=== PATIENT | male | born 1940 | race Caucasian/White ===

== ENCOUNTER 2019-08-03 08:17 | Outpatient (CLI) | payer MEDICARE, SELFPAY ==
[2019-08-03 08:36] LABS: Creatinine Urine 81.32 mg/dL (40-278)
[2019-08-03 08:54] LABS: Prothrombin Time 39.7 Seconds (9.64-11.0)
[2019-08-03 10:01] LABS: Albumin Level 3.9 g/dL (3.4-5.0); Anion Gap 13.9 mmol/L (7-16); Blood Urea Nitrogen 30 mg/dL (7-18); Calcium 8.5 mg/dL (8.5-10.1); Carbon Dioxide 28 mmol/L (21-32); Chloride 104 mmol/L (98-108); Estimated Glomerular Filt Rate 26; Glucose 202 mg/dL (70-99); Osmolality Calculated 304 mOsm/kg (285-295); Phosphorus 3.5 mg/dL (2.6-4.7); Potassium 4.9 mmol/L (3.5-5.1); Sodium 141 mmol/L (136-145)
== END 2019-08-03 08:18 | disposition home or self-care (01) ==
PROVIDERS: PCP Family Medicine; Visit Provider Internal Medicine Nephrology
DX: Z79.01 Long term (current) use of anticoagulants (principal); N18.4 Chronic kidney disease, stage 4 (severe); E11.29 Type 2 diabetes mellitus with other diabetic kidney complication; I12.9 Hypertensive chronic kidney disease with stage 1 through stage 4 chronic kidney disease, or unspecified chronic kidney disease; R80.8 Other proteinuria
CPT/HCPCS: 36415; 80069; 82570; 83036; 84156; 85610

== ENCOUNTER 2019-10-06 07:39 | Outpatient (CLI) | payer MEDICARE, SELFPAY ==
[2019-10-06 08:02] LABS: INR 1.4; Prothrombin Time 14.4 Seconds (9.64-11.0)
== END 2019-10-06 07:40 | disposition home or self-care (01) ==
LOC: CHSLAB 07:41
PROVIDERS: PCP Family Medicine; Visit Provider Family Medicine
DX: I48.91 Unspecified atrial fibrillation (principal)
CPT/HCPCS: 36415; 85610

== ENCOUNTER 2019-10-25 12:57 | Outpatient (CLI) | payer MEDICARE, SELFPAY ==
--- NOTE | ~2019-10-25 | US_ITS ---
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 COMPARISON: None. FINDINGS: Right and left brachial artery pressures of 155 mm Hg and 132 mm Hg, respectively, are concordant (no rmal difference <= 30 mmHg). The right ankle-brachial index (JENNIFER) is at least 0.99 (normal >= 0.9-1.0) based upon pressures in the right dorsalis pedis artery with the right posterior tibial artery unable to be occluded. There are brisk systolic upstrokes at both the right posterior tibial and dorsalis pedis arteries. The left JENNIFER is at least 0.87 based upon pressure measurements in the left dorsalis pedis artery with the left posterior tibial artery unable to be occluded allowing for the possibility of a normal left JENNIFER. Risk systolic upstrokes in both the left posterior tibial and dorsalis pedis arteries. IMPRESSION: 1. No significant arterial occlusive disease to the right lower limb with possible (no greater than m ild) arterial occlusive disease in the left lower limb. Reviewed, dictated and finalized at location A. IMPRESSION: 1. No significant arterial occlusive disease to the right lower limb with possi ble (no greater than mild) arterial occlusive disease in the left lower limb.
== END 2019-10-25 12:58 | disposition home or self-care (01) ==
LOC: CHSIMG 12:59
PROVIDERS: PCP Family Medicine; Visit Provider Family Medicine
DX: L97.919 Non-pressure chronic ulcer of unspecified part of right lower leg with unspecified severity (principal); I73.9 Peripheral vascular disease, unspecified
CPT/HCPCS: 93922

== ENCOUNTER 2019-11-02 09:04 | Outpatient (CLI) | payer MEDICARE, SELFPAY ==
[2019-11-02 09:28] LABS: INR 2.1; Prothrombin Time 21.2 Seconds (9.64-11.0)
== END 2019-11-02 09:05 | disposition home or self-care (01) ==
LOC: CHSLAB 09:06
PROVIDERS: PCP Family Medicine; Visit Provider Family Medicine
DX: Z79.01 Long term (current) use of anticoagulants (principal)
CPT/HCPCS: 36415; 85610

== ENCOUNTER 2019-11-11 07:44 | Outpatient (RCR) | payer MEDICARE, SELFPAY ==
[2019-10-29 13:52] VITALS: BMI 32.5
== END 2020-01-14 10:22 | disposition home or self-care (01) ==
LOC: ANHWOC 07:44
PROVIDERS: PCP Family Medicine; Visit Provider Family Medicine
DX: L97.319 Non-pressure chronic ulcer of right ankle with unspecified severity (principal)
CPT/HCPCS: 99212; G0463

== ENCOUNTER 2019-12-07 09:54 | Outpatient (CLI) | payer MEDICARE, SELFPAY ==
[2019-12-07 10:27] LABS: Prothrombin Time 19.8 Seconds (9.64-11.0)
[2019-12-07 10:33] LABS: Hemoglobin A1C 8.9 % (<5.7)
[2019-12-07 11:07] LABS: Creatinine Urine 137.89 mg/dL (40-278); Total Protein Urine Random 51.4 mg/dL (0.0-11.9)
[2019-12-07 11:07] LABS: Anion Gap 11 mmol/L (8-16); Blood Urea Nitrogen 37 mg/dL (7-18); Calcium 8.9 mg/dL (8.5-10.1); Carbon Dioxide 26 mmol/L (21-32); Chloride 105 mmol/L (98-108); Estimated Glomerular Filt Rate 28; Glucose 269 mg/dL (70-99); Osmolality Calculated 311 mOsm/kg (285-295); Phosphorus 3.1 mg/dL (2.6-4.7); Potassium 4.5 mmol/L (3.5-5.1); Sodium 142 mmol/L (136-145)
[2019-12-10 14:03] LABS: Parathyroid Intact 48 pg/mL (14-64)
[2019-12-11 10:22] LABS: Vitamin D 25 Hydroxy 31 ng/mL (30-100)
== END 2019-12-07 09:55 | disposition home or self-care (01) ==
LOC: CHSLAB 09:57
PROVIDERS: PCP Family Medicine; Visit Provider Internal Medicine Nephrology
DX: I12.9 Hypertensive chronic kidney disease with stage 1 through stage 4 chronic kidney disease, or unspecified chronic kidney disease (principal); N18.4 Chronic kidney disease, stage 4 (severe); E11.29 Type 2 diabetes mellitus with other diabetic kidney complication; R80.8 Other proteinuria; Z79.01 Long term (current) use of anticoagulants
CPT/HCPCS: 36415; 80069; 82306; 82570; 83036; 83970; 84156; 85610

== ENCOUNTER 2020-01-04 08:28 | Emergency (ER) | payer MEDICARE, SELFPAY ==
--- NOTE | ~2020-01-04 | XR_ITS ---
EXAMINATION: XR abdomen obstructive series DATE: 01/04/2020 09:12 INDICATION: Left lower quadrant needle foreign body. TECHNIQUE: 2 views of the abdomen on 3 radiographs were obtained. COMPARISON: None. FINDINGS: There are no dilated loops of bowel. There is a 1.4 cm needle shaped foreign body in the an terior abdominal wall on the crosstable lateral view. IMPRESSION: 1. 1.4 cm needle shaped foreign body in the anterior abdominal wall. Reviewed, dictated and finalized at location A.
[2020-01-04 08:35] VITALS: BP 170/87; PULSE 61; RESP 20; TEMP 36.7; O2SAT 98
--- NOTE | 2020-01-04 09:35 | ED.SKABFB ---
HPI - Skin/Abscess/Foreign Bdy General Chief complaint: Skin/Abscess/Foreign Body Stated complaint: 79 YO male w/ Insulin NEEDLE BROKE IN STOMACH at 7am today here for needle extraction. Related Data Home Medications Medication Instructions Recorded Confirmed aspirin 81 mg tablet,delayed 81 mg PO DAILY 04/21/19 10/29/19 release insulin glargine 100 unit/mL (3 45 unit SUB-Q DAILY ml 04/21/19 10/29/19 mL) subcutaneous pen simvastatin 40 mg tablet 40 mg PO DAILY 04/21/19 10/29/19 lisinopril 10 mg PO DAILY 01/04/20 01/04/20 warfarin 5 mg PO DAILY 01/04/20 01/04/20 Allergies Allergy/AdvReac Type Severity Reaction Status Date / Time meloxicam [Mobic] Allergy Intermediate Unknown Verified 10/25/19 12:10 naproxen Allergy Unknown Unknown Verified 10/25/19 12:10 Review of Systems Review of Systems: All systems reviewed & are unremarkable except as noted in HPI and below Constitutional: Constitutional: Reports as per HPI and Reports no additional constitutional complaints Eyes: Eyes: Reports as per HPI and Reports no additional eye complaints ENT: Reports system reviewed and no additional complaints, except as documented and Reports as per HPI Cardiovascular: Cardiovascular: Reports as per HPI and Reports no additional cardiovascular complaints Respiratory: Respiratory: Reports as per HPI and Reports no additional respiratory complaints Gastrointestinal: Gastrointestinal: Reports as per HPI and Reports no additional gastrointestinal complaints Genitourinary: Genitourinary: Reports no additional male genitourinary complaints Musculoskeletal: Musculoskeletal: Reports no additional musculoskeletal complaints Integumentary/Breasts: Comments: Broken Insulin Needle in Ant abd Neurologic: Reports system reviewed and no additional complaints, except as documented and Reports as per HPI Psychiatric: Psychiatric: Reports no additional psychiatric complaints Endocrine: Endocrine: Reports no additional endocrine complaints Hematologic/Lymphatic: Hematologic/Lymphatic: Reports no additional hematologic/lymphatic complaints Allergic/Immunologic: Allergic/Immunologic: Reports no additional allergic/immunologic complaints FOR[facility]LY [facility] Past Medical History Medical History (Updated 01/04/20 @ 10:42 by Terry Garrett MD) Atrial fibrillation CKD stage 4 due to type 2 diabetes mellitus CVA (cerebral vascular accident) DM2 (diabetes mellitus, type 2) Hyperlipidemia Hypertension Surgical History Surgical History Hx of artificial heart valve replacement 2018 Mechanical heart valve present Family History Family History Other Diabetes mellitus Family history of arthritis Hypertension Social History Social History Smoking status: Never smoker Alcohol intake: never Gender identity (if verbalized by the patient): Male Exam Const: General: healthy appearing, no acute distress and alert Orientation/consciousness: patient oriented x3 HENMT: Head: normal to inspection Eyes: Conjunctivae: conjunctivae normal Pupils: Equal, round and reactive pupils present Neck: Neck: normal visual inspection Chest: Chest palpation & inspection: normal inspection of the chest Resp: Effort & Inspection: normal respiratory effort Auscultation: clear to auscultation bilaterally Cardio: Rate: regular rate Rhythm: regular rhythm GI: GI Palp: Yes Soft to palpation, No Tenderness to palpation present (GI), No Guarding due to palpation present (GI), No Rigid due to palpation and No Rebound tenderness present : Testes: Testes normal Skin: General skin exam: normal color Neuro: General: patient oriented x3, moves all extremities, no meningeal signs, no focal motor deficits and CN's II-XI intact bilaterally Cranial nerves: Yes Nystagmus not present Extrem:
--- NOTE | 2020-01-04 09:39 | PC.NURSE ---
call to [facility] , spoke to cherry, awaiting call back
--- NOTE | 2020-01-04 10:28 | PC.NURSE ---
call to [facility] , spoke with cherry, awaiting call from dr garrett.
[2020-01-04] MEDS: TETANUS,DIPHTHERIA,AC PERTUSSIS ADULT 0.5 ML (ADACEL) IM (10:55)
[2020-01-04 11:00] VITALS: BP 176/84; PULSE 114; RESP 20; TEMP 36.3; O2SAT 97
== END 2020-01-04 11:00 | disposition home or self-care (01) ==
PROVIDERS: Emergency Provider Family Medicine; PCP Family Medicine
DX: S31.149A Puncture wound of abdominal wall with foreign body, unspecified quadrant without penetration into peritoneal cavity, initial encounter (principal); W45.8XXA Other foreign body or object entering through skin, initial encounter; I48.91 Unspecified atrial fibrillation; E11.22 Type 2 diabetes mellitus with diabetic chronic kidney disease; I12.9 Hypertensive chronic kidney disease with stage 1 through stage 4 chronic kidney disease, or unspecified chronic kidney disease; N18.4 Chronic kidney disease, stage 4 (severe); Z79.4 Long term (current) use of insulin; E78.5 Hyperlipidemia, unspecified
CPT/HCPCS: 74019; 90471; 90715; 99282; 99283

== ENCOUNTER 2020-03-30 10:25 | Outpatient (CLI) | payer MEDICARE, SELFPAY ==
[2020-03-30 11:02] LABS: Prothrombin Time 21.4 Seconds (9.50-12.10)
[2020-03-30 11:18] LABS: Creatinine Urine 151.99 mg/dL (40-278)
[2020-03-30 11:21] LABS: Total Protein Urine Random > 250.0 mg/dL (0.0-11.9); Ur Ttl Prot Creatinine Ratio 1.64 mg/mg (0-0.20)
[2020-03-30 11:45] LABS: Albumin Level 3.8 g/dL (3.4-5.0); Anion Gap 6 mmol/L (8-16); Blood Urea Nitrogen 28 mg/dL (7-18); Calcium 8.9 mg/dL (8.5-10.1); Carbon Dioxide 30 mmol/L (21-32); Chloride 104 mmol/L (98-108); Estimated Glomerular Filt Rate 26; Glucose 182 mg/dL (70-99); Osmolality Calculated 300 mOsm/kg (285-295); Potassium 4.5 mmol/L (3.5-5.1); Sodium 140 mmol/L (136-145)
== END 2020-03-30 10:26 | disposition home or self-care (01) ==
LOC: CHSLAB 10:28
PROVIDERS: PCP Family Medicine; Visit Provider Internal Medicine Nephrology
DX: E11.29 Type 2 diabetes mellitus with other diabetic kidney complication (principal); I12.9 Hypertensive chronic kidney disease with stage 1 through stage 4 chronic kidney disease, or unspecified chronic kidney disease; N18.4 Chronic kidney disease, stage 4 (severe); R80.8 Other proteinuria; Z79.01 Long term (current) use of anticoagulants
CPT/HCPCS: 36415; 80069; 82570; 84156; 85610

== ENCOUNTER 2020-05-04 12:24 | Outpatient (CLI) | payer MEDICARE, SELFPAY ==
--- NOTE | 2020-05-04 12:28 | ECHO_ITS ---
Patient Info Name: Otoniel Anne Age: 79 years : 1940 Gender: Male Ht: 72 in Wt: 235 lbs BSA: 2.36 m2 HR: 50 bpm BP: 186 / 79 mmHg Heart Rhythm: Sinus Rhythm Technical Quality: Fair Exam Date: 05/04/2020 1:07 PM Exam Location: [facility] Patient Status: Outpatient Admit Date: 05/04/2020 Staff Ordering Physician: Yash Rosario DO Md Urologist: Roya Guzman RDCS Attending Provider: Yash Rosario DO Referring Physician: Abraham [place]; Exam Type: CA echo doppler color flow Study Info Indications I10 - Essential (primary) hypertension Complete two-dimensional, color flow and Doppler transthoracic echocardiogram is performed. Strain analysis performed. History/Risk Factors Hypertension: Yes Dyslipidemia: No Diabetic Therapy: Insulin Chronic Lung Disease: No Obesity: Yes Renal Disease: Yes Coronary Artery Disease (CAD) Yes Diabetes Mellitus: Type II Tobacco Use: Former Cerebrovascular Disease: CVA Family History: Coronary Artery Disease DVT Treatment: Warfarin Deep Vein Thrombosis (DVT): None Frailty Scale (CSHA): 2: Well Prior Interventions Valve Surgery: Yes Type of Valve Surgery: AV Mechanical Replacement Summary 1. Complete two-dimensional, color flow and Doppler transthoracic echocardiogram is performed. 2. Left ventricular chamber dimension is normal. 3. Left ventricular systolic function is hyperdynamic, estimated at >70%. 4. There is mildly increased left ventricular wall thickness. 5. The left ventricular diastolic function is grade III diastolic dysfunction. 6. E/e' 22 is significantly elevated. 7. Left atrial chamber dimension is moderately enlarged. 8. Right atrial chamber dimension is moderately enlarged. 9. The mechanical aortic valve is not well visualized. 10. There is trace regurgitation of the mechanical aortic valve. 11. The mitral valve has moderately calcified annulus. 12. There is mild mitral valve regurgitation. 13. The tricuspid valve lateral leaflet is moderately prolapsed and leaflets are mildly thickened.. 14. There is moderate to severe tricuspid valve regurgitation. 15. Severe pulmonary hypertension, estimated pulmonary arterial systolic pressure is 67 mmHg. 16. There is trace pulmonic regurgitation. Recommendations * Continue medical therapy for diabetes. Left Ventricle E/e' 22 is significantly elevated. Left ventricular chamber dimension is normal. Left ventricular systolic function is hyperdynamic, estimated at >70%. There is mildly increased left ventricular wall thickness. The left ventricular diastolic function is grade III diastolic dysfunction. Right Ventricle Right ventricular chamber dimension is normal. Right ventricular systolic function is normal. Left Atria Left atrial chamber dimension is moderately enlarged. Right Atria Right atrial chamber dimension is moderately enlarged. Aortic Valve The mechanical aortic valve is not well visualized. There is no mechanical aortic valve stenosis. There is trace regurgitation of the mechanical aortic valve. Pulmonic Valve There is trace pulmonic regurgitation. Mitral Valve The mitral valve has moderately calcified annulus. There is no mitral valve stenosis. There is mild mitral valve regurgitation. Tricuspid Valve The tricuspid valve lateral leaflet is moderately prolapsed and leaflets are mildly thickened.. There is moderate to severe tricus
== END 2020-05-04 12:25 | disposition home or self-care (01) ==
LOC: CHSIMG 12:25
PROVIDERS: PCP Family Medicine; Visit Provider Family Medicine
DX: I10 Essential (primary) hypertension (principal)
CPT/HCPCS: 93306

== ENCOUNTER 2020-05-30 11:50 | Outpatient (RCR) | payer MEDICARE, SELFPAY ==
[2020-05-18 08:53] LABS: INR 1.4; Prothrombin Time 14.6 Seconds (9.50-12.10)
[2020-05-30 12:20] LABS: INR 3.2; Prothrombin Time 32.5 Seconds (9.50-12.10)
[2020-05-30 12:27] LABS: Hemoglobin A1C 9.6 % (<5.7)
== END 2020-08-16 23:59 | disposition home or self-care (01) ==
LOC: CHSLAB 11:50
PROVIDERS: PCP Family Medicine; Visit Provider Family Medicine
DX: Z79.01 Long term (current) use of anticoagulants (principal); E11.65 Type 2 diabetes mellitus with hyperglycemia; Z79.4 Long term (current) use of insulin; I10 Essential (primary) hypertension; R60.9 Edema, unspecified
CPT/HCPCS: 36415; 83036; 85610

== ENCOUNTER 2020-06-12 15:08 | Emergency (ER) | payer MEDICARE, SELFPAY ==
--- NOTE | ~2020-06-12 | XR_ITS ---
EXAMINATION: XR chest 1V portable EXAM DATE: 06/12/2020 15:41 INDICATION: Altered mental status, confusion. TECHNIQUE: Frontal and lateral projections of the chest obtained and reviewed. Comparison is made to prior examination from 01/04/2018. FINDINGS: Sternotomy wires are present without findings to suggest sternal dehiscence. The lungs are clear. There are no pleural effusions. Cardiac silhouette is prominent but magnified on this AP [place]. There is no pneumothorax suspected. The bones and soft tissues are unremarkable. IMPRESSION: No acute cardiopulmonary findings. Reviewed, dictated and finalized at location A.
[2020-06-12 15:15] VITALS: BP 178/71; PULSE 56; RESP 16; O2SAT 97
--- NOTE | 2020-06-12 15:27 | ECG_ITS ---
Measurements Intervals [place] Rate: 47 P: [place]: 0 QRS: 17 QRSD: 102 T: 80 QT: 532 QTc: 474 Interpretive Statements ATRIAL FIBRILLATION WITH SLOW VENTRICULAR RESPONSE ANTEROSEPTAL INFARCT, AGE INDETERMINATE BORDERLINE ST-T WAVE ABNORMALITY- HIGH LATERAL LEADS BASELINE ARTIFACT- I, III, AVR, AVL, AVF, V1-V2 ABNORMAL ECG Electronically Signed On 06-12-2020 16:40:34 CDT by Edi Olsen D.O.
[2020-06-12 16:19] LABS: Glucose Point of Care 141 (65-105)
[2020-06-12 16:27] LABS: Basophils Absolute Auto 0.02 K/mm3 (0.00-0.10); Basophils Percent Auto 0.2 % (0.0-1.0); Eosinophils Absolute Auto 0.08 K/mm3 (0.02-0.50); Eosinophils Percent Auto 0.9 % (1.0-6.0); Hematocrit 41.9 % (37.0-46.0); Hemoglobin 13.7 g/dL (12.4-15.3); Immature Granulocyte Absolute 0.05 K/mm3 (0.00-0.00); Immature Granulocyte Percent A 0.6 % (0.0-0.0); Lymphocytes Absolute Auto 0.53 K/mm3 (1.10-4.50); Lymphocytes Percent Auto 6.1 % (18.0-42.0); Mean Corpuscular HGB Conc 32.7 g/dL (32.0-36.0); Mean Corpuscular Hemoglobin 30.7 pg (27.0-31.0); Mean Corpuscular Volume 93.9 fL (78.0-102.0); Mean Platelet Volume 10.3 fl (8.7-11.0); Monocytes Absolute Auto 0.52 K/mm3 (0.10-0.90); Neutrophils Absolute Auto 7.5 K/mm3 (1.7-7.2); Neutrophils Percent Auto 86.2 % (50.0-70.0); Platelet Count Result 191 K/mm3 (150-420); Red Blood Count 4.46 M/mm3 (4.70-6.10); Red Cell Distribution Width 13.3 % (11.6-14.4); White Blood Count 8.7 K/mm3 (4.8-10.8)
--- NOTE | 2020-06-12 16:37 | PC.NURSE ---
Pt ate 100% of meal tray.
[2020-06-12 16:42] LABS: INR 2.9; Partial Thromboplastin Time 41.1 SEC (23.90-30.70); Prothrombin Time 29.3 Seconds (9.50-12.10)
[2020-06-12 16:48] LABS: BNP 279 pg/mL (0-100)
[2020-06-12 16:54] LABS: Alanine Aminotransferase 24 U/L (16-63); Albumin Level 3.7 g/dL (3.4-5.0); Alkaline Phosphatase 139 U/L (46-116); Anion Gap 9 mmol/L (8-16); Aspartate Amino Transferase 33 U/L (15-37); Bilirubin,Total 0.6 mg/dL (0.00-1.00); Blood Urea Nitrogen 33 mg/dL (7-18); Calcium 8.8 mg/dL (8.5-10.1); Carbon Dioxide 30 mmol/L (21-32); Chloride 102 mmol/L (98-108); Creatine Kinase 246 U/L (39-308); Estimated Glomerular Filt Rate 29; Glucose 147 mg/dL (70-99); Osmolality Calculated 302 mOsm/kg (285-295); Potassium 4.2 mmol/L (3.5-5.1); Sodium 141 mmol/L (136-145); Thyroid Stimulating Hormone 1.93 uIU/mL (0.36-3.74); Total Protein 7.6 g/dL (6.4-8.2); Troponin I 22.6 ng/L (0.00-60.4)
--- NOTE | 2020-06-12 17:08 | ED.GENADULT ---
HPI - General Adult General Chief complaint: Altered Mental Status Stated complaint: Ambulance Source: patient, family and EMS History of Present Illness HPI narrative: This is an 79-year-old gentleman with history of diabetes had a lower blood sugar and was brought to the emergency department via EMS. Subsequent blood sugars have improved and the patient was little confused initially, but denied any chest pain or shortness of breath no fever chills no abdominal pain no dysuria no lower extremity edema no cough or congestion. The patient also has a history of atrial fibrillation, hypertension. Onset (ago): hour(s) Related Data Home Medications Medication Instructions Recorded Confirmed aspirin 81 mg tablet,delayed 81 mg PO DAILY 04/21/19 06/12/20 release lisinopril 20 mg tablet 20 mg PO DAILY tablet 05/30/20 06/12/20 warfarin 4 mg tablet 8 mg PO DAILY tablet 05/30/20 06/12/20 metoprolol succinate 25 mg PO DAILY 06/12/20 06/12/20 Allergies Allergy/AdvReac Type Severity Reaction Status Date / Time meloxicam [Mobic] Allergy Intermediate Unknown Verified 05/30/20 11:16 naproxen Allergy Unknown Unknown Verified 05/30/20 11:16 Review of Systems Review of Systems: All systems reviewed & are unremarkable except as noted in HPI and below PMFSH Past Medical History Medical History Atrial fibrillation CKD stage 4 due to type 2 diabetes mellitus CVA (cerebral vascular accident) DM2 (diabetes mellitus, type 2) Heart disease Hyperlipidemia Hypertension Prostate cancer Umbilical hernia without mention of obstruction or gangrene Surgical History Surgical History H/O aortic valve replacement History of knee replacement Hx of artificial heart valve replacement 2018 Hx of cataract surgery 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 Family History Family History Other Diabetes mellitus Heart disease Hypertension Other Family history of arthritis Social History Social History Smoking status: Never smoker Alcohol intake: never Substance use: unknown Gender identity (if verbalized by the patient): Male Exam Const: General: no acute distress and alert Orientation/consciousness: patient oriented x3 HENMT: Head: normal to inspection Eyes: Conjunctivae: conjunctivae normal Pupils: Equal, round and reactive pupils present EOM: EOMs intact bilaterally Direct Ophthalmoscopy: no photophobia Neck: Neck: normal visual inspection, no lymphadenopathy and no meningeal signs Chest: Chest palpation & inspection: normal inspection of the chest Resp: Effort & Inspection: normal respiratory effort Cardio: Rate: regular rate Rhythm: abnormal rhythm GI: GI Palp: Yes Soft to palpation Percussion: Yes normal to percussion Back/Spine/Pelvis: Back: no CVA tenderness Skin: General skin exam: normal color Rashes: no rashes Extrem: General: normal to inspection and no pedal edema Psych: Appearance: grossly normal and well kempt Mental Status: mental status grossly normal Affect: normal affect Course Course Emergency Course: Patient with a hyper and hypoglycemic episode currently blood sugars 147 and patient is asymptomatic and labs and x-rays reviewed with patient and family and will discharge home and advised to follow with his primary care physician. Vital Signs Vital signs: Vital Signs Pulse Rate 56 L 06/12/20 15:15 Respiratory Rate 16 06/12/20 15:15 Blood Pressure 178/71 H 06/12/20 15:15 Pulse Oximetry 97 06/12/20 15:15 Pulse Rate 56 L 06/12/20 15:15 Respiratory Rate 16 06/12/20 15:15 Blood Pressure 178/71 H 06/12/20 15:15 Pulse Oximetry 97 06/12/20 15:15 Medical Decision Making Vital Signs Vi
[2020-06-12 17:13] VITALS: BP 180/82; PULSE 64; RESP 18; O2SAT 97
== END 2020-06-12 17:31 | disposition home or self-care (01) ==
PROVIDERS: Emergency Provider Emergency Medicine; PCP Family Medicine
DX: E11.649 Type 2 diabetes mellitus with hypoglycemia without coma (principal); I48.91 Unspecified atrial fibrillation; N18.4 Chronic kidney disease, stage 4 (severe); Z86.73 Personal history of transient ischemic attack (TIA), and cerebral infarction without residual deficits; E78.5 Hyperlipidemia, unspecified; I12.9 Hypertensive chronic kidney disease with stage 1 through stage 4 chronic kidney disease, or unspecified chronic kidney disease; Z85.46 Personal history of malignant neoplasm of prostate
CPT/HCPCS: 36415; 71045; 80053; 82550; 82948; 83880; 84443; 84484; 85025; 85610; 85730; 87040; 93005; 99283; 99284

== ENCOUNTER 2020-07-24 09:32 | Outpatient (CLI) | payer MEDICARE, SELFPAY ==
[2020-07-24 10:02] LABS: INR 3.4; Prothrombin Time 34.4 Seconds (9.50-12.10)
[2020-07-24 10:32] LABS: Creatinine Urine 101.18 mg/dL (40-278); Total Protein Urine Random 165.4 mg/dL (0.0-11.9); Ur Ttl Prot Creatinine Ratio 1.63 mg/mg (0-0.20)
[2020-07-24 10:43] LABS: Albumin Level 3.5 g/dL (3.4-5.0); Anion Gap 6 mmol/L (8-16); Blood Urea Nitrogen 43 mg/dL (7-18); Calcium 8.7 mg/dL (8.5-10.1); Carbon Dioxide 29 mmol/L (21-32); Chloride 101 mmol/L (98-108); Estimated Glomerular Filt Rate 26; Glucose 339 mg/dL (70-99); Osmolality Calculated 305 mOsm/kg (285-295); Phosphorus 3.4 mg/dL (2.6-4.7); Potassium 4.7 mmol/L (3.5-5.1); Sodium 136 mmol/L (136-145)
[2020-07-27 16:56] LABS: Parathyroid Intact 91 pg/mL (14-64)
[2020-07-31 03:03] LABS: Vitamin D 25 Hydroxy 28 ng/mL (30-100)
== END 2020-07-24 09:33 | disposition home or self-care (01) ==
LOC: CHSLAB 09:34
PROVIDERS: PCP Family Medicine; Visit Provider Internal Medicine Nephrology
DX: R80.8 Other proteinuria (principal); I12.9 Hypertensive chronic kidney disease with stage 1 through stage 4 chronic kidney disease, or unspecified chronic kidney disease; N18.4 Chronic kidney disease, stage 4 (severe); E11.29 Type 2 diabetes mellitus with other diabetic kidney complication
CPT/HCPCS: 36415; 80069; 82306; 82570; 83970; 84156; 85610

== ENCOUNTER 2020-07-25 14:46 | Outpatient (CLI) | payer MEDICARE, SELFPAY | END 2020-07-25 14:47 | disposition home or self-care (01) | LOC: CHSLAB 14:49 | PROVIDERS: PCP Family Medicine; Visit Provider Specialist | DX: L98.9 Disorder of the skin and subcutaneous tissue, unspecified (principal) | CPT/HCPCS: 88305 ==

== ENCOUNTER 2020-10-09 09:37 | Outpatient (CLI) | payer MEDICARE, SELFPAY ==
[2020-10-09 10:03] LABS: Hemoglobin A1C 10.9 % (<5.7)
[2020-10-09 10:12] LABS: INR 3.9; Prothrombin Time 38.7 Seconds (9.50-12.10)
== END 2020-10-09 09:38 | disposition home or self-care (01) ==
LOC: CHSLAB 09:40
PROVIDERS: PCP Family Medicine; Visit Provider Family Medicine
DX: E11.9 Type 2 diabetes mellitus without complications (principal); Z79.01 Long term (current) use of anticoagulants
CPT/HCPCS: 36415; 83036; 85610

== ENCOUNTER 2020-10-11 07:59 | Outpatient (RCR) | payer MEDICARE, SELFPAY ==
[2020-10-11 08:38] LABS: INR 1.7; Prothrombin Time 17.2 Seconds (9.50-12.10)
== END 2021-01-09 23:59 | disposition home or self-care (01) ==
LOC: CHSLAB 07:59
PROVIDERS: PCP Family Medicine; Visit Provider Nurse Practitioner Family
DX: Z79.01 Long term (current) use of anticoagulants (principal)
CPT/HCPCS: 36415; 85610

== ENCOUNTER 2020-10-13 12:55 | Outpatient (CLI) | payer MEDICARE, SELFPAY ==
--- NOTE | ~2020-10-13 | CT_ITS ---
EXAMINATION: CT chest high resolution wo co EXAM DATE: 10/13/2020 13:25 INDICATION: R04.2 - Hemoptysis in the morning. Previous smoker. TECHNIQUE: Spiral CT of the chest without contrast. HRCT. Axial, coronal and sagittal images of the chest were reviewed. Coronal maximum intensity pixel images of chest reviewed. The dose-length prod uct (DLP) for this examination was 427.59 mGy-cm. The exposure was tailored according to patient siz e (auto mA exposure control), and iterative reconstruction (ASIR) was used as additional dose reducti on technique. There is no prior study for comparison. FINDINGS: Aortic valve replacement. Mildly dilated ascending aorta at 4.9 cm. There is mild irregula r septal thickening seen with peripheral bibasilar predominance and areas of groundglass opacity. 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 There are no pleural or pericardial effusions. Tracheobronchial tree is patent. There is no media stinal, hilar or axillary lymphadenopathy. There is no pneumothorax. Heart normal in size. Ther e is mild coronary arterial calcification, arterial sclerosis. Upper abdomen is unremarkable. Ther e is thoracic spondylosis without osteoblastic or osteolytic lesions identified. IMPRESSION: 1. Mild NSIP pattern interstitial lung disease. 2. Mildly aneurysmal ascending aorta. 3. No Cardiomegaly. Reviewed, dictated and finalized at location A.
== END 2020-10-13 12:56 | disposition home or self-care (01) ==
LOC: CHSIMG 12:56
PROVIDERS: PCP Family Medicine; Visit Provider Family Medicine
DX: R04.2 Hemoptysis (principal)
CPT/HCPCS: 71250

== ENCOUNTER 2020-10-27 12:44 | Outpatient (CLI) | payer MEDICARE, SELFPAY ==
[2020-10-27 13:15] LABS: Hemoglobin A1C 11.4 % (<5.7)
[2020-10-27 13:18] LABS: Total Protein Urine Random 170.4 mg/dL (0.0-11.9); Ur Ttl Prot Creatinine Ratio 2.22 mg/mg (0-0.20)
[2020-10-27 13:36] LABS: Albumin Level 3.7 g/dL (3.4-5.0); Anion Gap 7 mmol/L (8-16); Blood Urea Nitrogen 34 mg/dL (7-18); Calcium 8.7 mg/dL (8.5-10.1); Carbon Dioxide 31 mmol/L (21-32); Chloride 105 mmol/L (98-108); Estimated Glomerular Filt Rate 27; Glucose 333 mg/dL (70-99); Osmolality Calculated 316 mOsm/kg (285-295); Phosphorus 3.3 mg/dL (2.6-4.7); Potassium 4.9 mmol/L (3.5-5.1); Sodium 143 mmol/L (136-145)
== END 2020-10-27 12:45 | disposition home or self-care (01) ==
LOC: CHSLAB 12:46
PROVIDERS: PCP Family Medicine; Visit Provider Internal Medicine Nephrology
DX: E11.29 Type 2 diabetes mellitus with other diabetic kidney complication (principal); I12.9 Hypertensive chronic kidney disease with stage 1 through stage 4 chronic kidney disease, or unspecified chronic kidney disease; N18.4 Chronic kidney disease, stage 4 (severe); R80.8 Other proteinuria
CPT/HCPCS: 36415; 80069; 82570; 83036; 84156

== ENCOUNTER 2021-02-02 13:25 | Outpatient (CLI) | payer MEDICARE, SELFPAY ==
--- NOTE | ~2021-02-02 | US_ITS ---
EXAMINATION: US arterial ankle brachial ind EXAM DATE: 02/02/2021 14:06 INDICATION: I73.9 - Peripheral vascular disease, unspecified TECHNIQUE: Segmental pressures and plethysmographic and Doppler waveforms of the brachial and lower e xtremity arteries were obtained. Comparison is made to prior examination from 10/25/2019. FINDINGS: Right and left brachial artery pressures of 180 mm Hg and 193 mm Hg, respectively, are concordant (no rmal difference <= 30 mmHg). RIGHT LEG: The ankle-brachial index (JENNIFER) is 0.52 (normal >= 0.9-1). The lower extremity ratios, segmental pressure gradients as follows; Dorsalis pedis: 0.51 (98 mmHg). Posterior tibial: 0.52 (101 mmHg). Great toe pressure of 85 mmHg. (Normal gradients <= 20-30 mmHg between adjacent levels on the same leg or the same levels on the two legs). Arterial waveforms are monophasic. LEFT LEG: The ankle-brachial index (JENNIFER) is 0.62 (normal >= 0.9-1). The lower extremity ratios, segmental pressure gradients as follows; Dorsalis pedis: 0.62 (120 mmHg). Posterior tibial: 0.56 (109 mmHg). Great toe pressure of 87 mmHg. (Normal gradients <= 20-30 mmHg between adjacent levels on the same leg or the same levels on the two legs). Arterial waveforms are monophasic. On previous examination 10/25/2019 right and left ABIs were 0.99, 0.87 respectively. IMPRESSION: 1. Right ankle-brachial index 0.52, moderately decreased. 2. Left ankle-brachial index 0.62, moderately decreased. 3. Segmental pressures as above. Reviewed, dictated and finalized at location A. E MAKER
== END 2021-02-02 13:26 | disposition home or self-care (01) ==
PROVIDERS: PCP Family Medicine; Visit Provider Nurse Practitioner Family
DX: I73.9 Peripheral vascular disease, unspecified (principal)
CPT/HCPCS: 93922

== ENCOUNTER 2021-02-05 21:11 | Inpatient (IN) | payer MEDICARE, SELFPAY ==
[2021-02-05 21:20] VITALS: BP 219/85; PULSE 47; RESP 20; TEMP 36.5; O2SAT 98
--- NOTE | 2021-02-05 21:38 | ECG_ITS ---
Measurements Intervals [place] Rate: 45 P: [place]: 0 QRS: 0 QRSD: 106 T: 124 QT: 505 QTc: 439 Interpretive Statements ATRIAL FIBRILLATION WITH SLOW VENTRICULAR RESPONSE LEFT VENTRICULAR HYPERTROPHY WITH ST-T CHANGE BORDERLINE R WAVE PROGRESSION, ANTERIOR LEADS CONSIDER INFERIOR INFARCT, AGE INDETERMINATE BASELINE ARTIFACT- I, III ,AVR, AVL, V2 ABNORMAL ECG Electronically Signed On 02-06-2021 7:50:57 [employer] [employer] by Edi Olsen D.O.
[2021-02-05 21:59] LABS: Basophils Absolute Auto 0.05 K/mm3 (0.00-0.10); Basophils Percent Auto 0.7 % (0.0-1.0); Eosinophils Absolute Auto 0.43 K/mm3 (0.02-0.50); Eosinophils Percent Auto 5.8 % (1.0-6.0); Hematocrit 40.5 % (37.0-46.0); Hemoglobin 13.9 g/dL (12.4-15.3); Immature Granulocyte Absolute 0.02 K/mm3 (0.00-0.00); Immature Granulocyte Percent A 0.3 % (0.0-0.0); Lymphocytes Absolute Auto 0.95 K/mm3 (1.10-4.50); Lymphocytes Percent Auto 12.7 % (18.0-42.0); Mean Corpuscular HGB Conc 34.3 g/dL (32.0-36.0); Mean Corpuscular Hemoglobin 30.9 pg (27.0-31.0); Mean Platelet Volume 10.8 fl (8.7-11.0); Monocytes Absolute Auto 0.69 K/mm3 (0.10-0.90); Monocytes Percent Auto 9.2 % (2.0-11.0); Neutrophils Absolute Auto 5.3 K/mm3 (1.7-7.2); Neutrophils Percent Auto 71.3 % (50.0-70.0); Platelet Count Result 179 K/mm3 (150-420); Red Cell Distribution Width 12.3 % (11.6-14.4); White Blood Count 7.5 K/mm3 (4.8-10.8)
[2021-02-05] MEDS: SODIUM CHLORIDE 0.9% IV 1,000 ML 999 ML IV CONT ×2 (22:11→22:33)
[2021-02-05 22:15] VITALS: PULSE 47
[2021-02-05 22:22] LABS: Lactic Acid Reflex 1.9 mmol/L (0.4-2.0)
[2021-02-05 22:25] LABS: Alanine Aminotransferase 34 U/L (16-63); Albumin Level 3.7 g/dL (3.4-5.0); Alkaline Phosphatase 157 U/L (46-116); Anion Gap 7 mmol/L (8-16); Aspartate Amino Transferase 37 U/L (15-37); Bilirubin,Total 0.6 mg/dL (0.00-1.00); Blood Urea Nitrogen 45 mg/dL (7-18); Calcium 8.8 mg/dL (8.5-10.1); Carbon Dioxide 29 mmol/L (21-32); Chloride 94 mmol/L (98-108); Estimated CRCL calculation 26 ml/min; Estimated Glomerular Filt Rate 24; Magnesium 2.3 mg/dL (1.8-2.4); Phosphorus 3.9 mg/dL (2.6-4.7); Potassium 4.5 mmol/L (3.5-5.1); Sodium 130 mmol/L (136-145); Total Protein 7.3 g/dL (6.4-8.2)
[2021-02-05] MEDS: ENALAPRILAT 2.5 MG/2 ML VIAL 1.25 MG IV PUSH (22:25)
[2021-02-05 22:26] LABS: Glucose 592 mg/dL (70-99); Osmolality Calculated 308 mOsm/kg (285-295)
[2021-02-05 22:30] VITALS: BP 184/76; PULSE 48; RESP 20; TEMP 37.1; O2SAT 100
[2021-02-05 22:32] LABS: Glucose Point of Care > 450 mg/dl (65-105)
[2021-02-05 22:32] LABS: Glucose Point of Care > 450 mg/dl (65-105)
--- NOTE | 2021-02-05 22:34 | ED.GENADULT ---
HPI - General Adult General Chief complaint: Unspecified Stated complaint: high blood sugar Source: patient Mode of arrival: ambulatory Limitations: no limitations History of Present Illness HPI narrative: this is a an 80-year-old gentleman that presents with his son after they had high blood sugar reading at they were read greater than 600 on on numerous occasions and was brought to the emergency department for further evaluation. The patient has a history of diabetes atrial fibrillation hyperlipidemia status post aortic valve replacement is currently on Coumadin and all blood pressure medication including metoprolol. The patient has had a prior EKG that showed that his heart rate runs a little bit on the slower side, the patient is asymptomatic with no chest pain no shortness of breath no headaches no blurry vision no nausea or vomiting no dysuria no flank pain no chest pain no palpitations. Onset (ago): hour(s) Related Data Home Medications Medication Instructions Recorded Confirmed aspirin 81 mg tablet,delayed 81 mg PO DAILY 04/21/19 06/12/20 release Allergies Allergy/AdvReac Type Severity Reaction Status Date / Time meloxicam [Mobic] Allergy Intermediate Unknown Verified 01/31/21 14:49 naproxen Allergy Unknown Unknown Verified 01/31/21 14:49 Review of Systems Review of Systems: All systems reviewed & are unremarkable except as noted in HPI and below PMFSH Past Medical History Medical History Atrial fibrillation CKD stage 4 due to type 2 diabetes mellitus CVA (cerebral vascular accident) DM2 (diabetes mellitus, type 2) Heart disease Hyperlipidemia Hypertension Prostate cancer Umbilical hernia without mention of obstruction or gangrene Surgical History Surgical History H/O aortic valve replacement History of knee replacement Hx of artificial heart valve replacement 2018 Hx of cataract surgery 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 Family History Family History Other Diabetes mellitus Heart disease Hypertension Other Family history of arthritis Social History Social History Smoking status: Former smoker Alcohol intake: never Substance use: unknown Gender identity (if verbalized by the patient): Male Sexual Orientation (if Verbalized by the Patient): Straight or Heterosexual Exam Const: General: cooperative, healthy appearing, comfortable, no acute distress, well developed, alert, awake and Physically active HENMT: Head: normal to inspection Ears: hearing grossly normal bilaterally General nose exam: Normal external nose present Face and sinus: normal facial exam Mouth: Yes Normal oral and palatal mucosa present Eyes: General: appearance normal, both eyes and all related structures Eyelids: eyelids normal Conjunctivae: conjunctivae normal Sclera: sclerae normal Pupils: Equal, round and reactive pupils present Chest: Chest palpation & inspection: normal inspection of the chest and normal palpation of entire chest wall Resp: Effort & Inspection: normal respiratory effort Auscultation: clear to auscultation bilaterally Cardio: Jugular venous distension: no JVD Palpation: abnormal PMI Rate: bradycardic Rhythm: abnormal rhythm Heart sounds: Murmur heart sound present GI: Inspection: normal to inspection Auscultation: normal bowel sounds : General: Yes CVA tenderness Skin: General skin exam: normal color and no rashes or lesions noted Neuro: General: oriented to person, oriented to place, oriented to time, patient oriented x3, gait normal, tone normal and moves all extremities Psych: Appearance: grossly normal and well kempt Mental Status: mental status grossly normal Course Course Emergency
[2021-02-05 22:42] VITALS: O2SAT 99
[2021-02-05 22:52] LABS: CRP < 0.2 mg/dL (0.0-0.9)
--- NOTE | 2021-02-05 22:54 | PC.NURSE ---
pt adamantly wanting to go home, son at bedside states pt lives with him but daughter has POA. awaiting decision to sign AMA or pt to be full admit.
[2021-02-05 23:04] VITALS: PULSE 53
[2021-02-05 23:11] VITALS: PULSE 53; RESP 50; TEMP 37.1; O2SAT 97
--- NOTE | 2021-02-05 23:17 | PC.NURSE ---
PT SHAKING. DENIES COLD, REFUSED BLANKET. SON STATES PT IS SHAKY AT TIMES.
[2021-02-05 23:36] LABS: Glucose Point of Care 393 mg/dl (65-105)
[2021-02-06] VITALS: BP 170/76; PULSE 43; PULSE 46; RESP 18; TEMP 36.6; O2SAT 99
[2021-02-06 00:18] LABS: Add Urine Microscopic? YES; Appearance Urine Clear (Clear); Bilirubin Urine Negative (Negative); Blood Urine 3+ (Negative); Color Urine Light Yellow (Yellow); Glucose Urine UA 3+ (Negative); Ketones Urine Negative (Negative); Leukocyte Esterase Ur Negative (Negative); Nitrate Urine Negative (Negative); Protein Urine 2+ (Negative); Specific Grav Ur 1.015 (1.010-1.020); Urobilinogen Urine 0.2 mg/dL (0.2-1.0)
[2021-02-06 00:19] LABS: Bacteria Urine Trace /hpf; WBC Urine 0-3 /hpf (0-3)
[2021-02-06] MEDS: SODIUM CHLORIDE 0.9% IV 1,000 ML 100 ML IV CONT (01:13)
--- NOTE | 2021-02-06 01:27 | PC.NURSE ---
Non slip socks applied to pt. Bed is in lowest position with 2 bed rails raised. Fresh ice water, call light, and tissues within reach. Pt has compression stockings from home currently home. Pt denies having any pain. Otoniel is oriented to person, place, and time, but has trouble recalling from [facility]ent[facility] memory.
--- NOTE | 2021-02-06 01:42 | PC.NURSE ---
Otoniel's wallet brought to medication room to hold it securely per pt request.
[2021-02-06 02:08] LABS: Glucose Point of Care 305 mg/dl (65-105)
[2021-02-06 03:09] VITALS: PULSE 46
[2021-02-06 04:00] VITALS: BP 172/57; PULSE 47; RESP 17; TEMP 36.2; O2SAT 99
--- NOTE | 2021-02-06 04:09 | PC.NURSE ---
Pt IV tubing changed. Pump alarm continuously off. Pt IV site flushed and tubing assessed with no bending or kinks found in the tubing with the alarm still going off. New tubing then used with the alarm alerting still, but after one more flush did not go off. Call light within reach. Pt was drowsy during process, but did not object to intervention.
--- NOTE | 2021-02-06 04:52 | PC.NURSE ---
Pt stated he had some confusion and repeatedly said What's going on? This insurance underwriter tried to educate the pt on what was happening on the results of his most recent blood glucose, bp reading, and why he was on fluids. Pt exhibited some sign of confusion. Charge nurse was notified of situation and findings and also tried to provide education to put pt at ease with no change in outcome. Pt has call light and freshwater within reach.
[2021-02-06 05:28] LABS: Basophils Absolute Auto 0.03 K/mm3 (0.00-0.10); Basophils Percent Auto 0.4 % (0.0-1.0); Eosinophils Absolute Auto 0.51 K/mm3 (0.02-0.50); Eosinophils Percent Auto 6.3 % (1.0-6.0); Hemoglobin 12.8 g/dL (12.4-15.3); Immature Granulocyte Absolute 0.02 K/mm3 (0.00-0.00); Immature Granulocyte Percent A 0.2 % (0.0-0.0); Lymphocytes Absolute Auto 1.24 K/mm3 (1.10-4.50); Lymphocytes Percent Auto 15.3 % (18.0-42.0); Mean Corpuscular HGB Conc 34.6 g/dL (32.0-36.0); Mean Corpuscular Hemoglobin 30.4 pg (27.0-31.0); Mean Corpuscular Volume 87.9 fL (78.0-102.0); Monocytes Percent Auto 9.9 % (2.0-11.0); Neutrophils Absolute Auto 5.5 K/mm3 (1.7-7.2); Neutrophils Percent Auto 67.9 % (50.0-70.0); Platelet Count Result 171 K/mm3 (150-420); Red Blood Count 4.21 M/mm3 (4.70-6.10); Red Cell Distribution Width 12.3 % (11.6-14.4); White Blood Count 8.1 K/mm3 (4.8-10.8)
[2021-02-06 05:36] LABS: Glucose Point of Care 237 mg/dl (65-105)
--- NOTE | 2021-02-06 05:36 | PC.NURSE ---
Pt requested a blood sugar reading to help relieve anxiety. Results did so accordingly. Pt stated that hospitals make him nervous and this medical technical writer stayed in the room and talked with Otoniel to help put him at ease. Pt stated he is feeling more normal than when he originally arrived to the floor. Pt used the urinal and stated he had some issues in the past with voiding. This was present in the pt's urgency to void and the voiding process taking a bit longer. Pt ambulated to the chair with one assist and gait belt and walker. Pt tolerated very well. Pt stated he felt more comfortable in the chair and did not was a blanket. Call light and water within reach.
[2021-02-06 05:44] LABS: Alanine Aminotransferase 29 U/L (16-63); Albumin Level 3.1 g/dL (3.4-5.0); Alkaline Phosphatase 127 U/L (46-116); Anion Gap 10 mmol/L (8-16); Aspartate Amino Transferase 38 U/L (15-37); Bilirubin,Total 0.6 mg/dL (0.00-1.00); Blood Urea Nitrogen 38 mg/dL (7-18); Calcium 8.3 mg/dL (8.5-10.1); Carbon Dioxide 24 mmol/L (21-32); Chloride 103 mmol/L (98-108); Estimated CRCL calculation 32 ml/min; Estimated Glomerular Filt Rate 30; Glucose 245 mg/dL (70-99); Osmolality Calculated 301 mOsm/kg (285-295); Potassium 3.4 mmol/L (3.5-5.1); Sodium 137 mmol/L (136-145); Total Protein 6.3 g/dL (6.4-8.2)
[2021-02-06 05:47] LABS: INR 4.3; Prothrombin Time 42.7 Seconds (9.50-12.10)
--- NOTE | 2021-02-06 06:42 | PC.NURSE ---
Pt ambulated back to bed with 1 assist and walker. Pt stated he prefers the lights on when he sleeps and has had issues with his memory. He also stated he has a distrust of doctors, but is happy with the care he has received so far. Pt tolerated the ambulation very well. Call light within reach.
[2021-02-06 07:54] LABS: Glucose Point of Care 330 mg/dl (65-105)
[2021-02-06 08:00] VITALS: BP 174/81; PULSE 50; PULSE 53; RESP 16; TEMP 36.6; O2SAT 97
[2021-02-06] MEDS: SIMVASTATIN 10 MG TABLET 40 MG BY MOUTH (09:00)
[2021-02-06] MEDS: INSULIN GLARGINE (*BKC) 100 UNITS/ML 30 UNITS SUB-Q (09:00)
[2021-02-06] MEDS: lisinopriL 20 MG TABLET 40 MG PO (09:09)
[2021-02-06] MEDS: POTASSIUM CHLORIDE 20 MEQ TABLET 40 MEQ PO (10:40)
[2021-02-06 12:00] VITALS: BP 175/80; PULSE 50; PULSE 52; RESP 16; TEMP 36.4; O2SAT 97
[2021-02-06] MEDS: FUROSEMIDE INJ 40 MG/4 ML VIAL IV PUSH (12:20)
--- NOTE | 2021-02-06 12:51 | PM.SD2 ---
Same Day Admit/Disch: HPI History of Present Illness Chief complaint: HYPERGLYCEMIA BRADYCARDIA HYPERTENSION <MARIETTA Bergman - Last Filed: 02/11/21 14:26> Narrative: this is a an 80-year-old gentleman that presents to the ED with complaints of high blood sugar reading at they were read greater than 600 on on numerous occasions patient has a past medical history of AFib, chronic kidney disease, CVA, diabetes, heart disease, hyperlipidemia, hypertension, and prostate cancer. wbc 8.1, hgb4.21, hct 12.8, plt 171,na 137, potassium 3.4,bun38, cr 2.10, glucose 381 ast 38, alt 29 , afib with rvr. patient blood sugar has stabilized he will discharge home and continue to monitor his blood sugar patient is non compliant with medication he has been educated on taking medication as prescribed by his primary care physician his daughter also notes that he is not compliant with his diet. Patient will follow-up with his primary care physician. he was also instructed to take his blood pressure reading every day and document the numbers and follow with his primary care physician for medication adjustment. patient is anxious to go home and agrees with his discharge. Patient denies cp, sob, palpitation, diarrhea, constipation, lightheadness, headache, dizziness or chills and fevers. time spent 60 minutes <MARIETTA Bergman - Last Filed: 02/11/21 14:26> [facility] Past Medical History Medical History: Medical History Atrial fibrillation CKD stage 4 due to type 2 diabetes mellitus CVA (cerebral vascular accident) DM2 (diabetes mellitus, type 2) Heart disease Hyperlipidemia Hypertension Prostate cancer Umbilical hernia without mention of obstruction or gangrene <MARIETTA Bergman - Last Filed: 02/11/21 14:26> Surgical History Surgical History: Surgical History H/O aortic valve replacement History of knee replacement Hx of artificial heart valve replacement 2018 Hx of cataract surgery 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 <MARIETTA Bergman - Last Filed: 02/11/21 14:26> Family History Family History: Family History Other Diabetes mellitus Heart disease Hypertension Other Family history of arthritis <MARIETTA Bergman - Last Filed: 02/11/21 14:26> Social History Social History: Social History Smoking packs per day: 2 Smoking cigarettes per day: 40.0 Years smoked: 30 Smoking pack-years: 60.00 Smoking status: Former smoker Tobacco type: cigarettes, pipe and cigars Alcohol intake: never Substance use: never Gender identity (if verbalized by the patient): Male Sexual Orientation (if Verbalized by the Patient): Straight or Heterosexual Spiritual care concerns: Yes <MARIETTA Bergman - Last Filed: 02/11/21 14:26> Same Day Admit/Disch: Med Pre-admit Medications Home Medications: Home Medications Medication Instructions Recorded Confirmed Type aspirin 81 mg tablet,delayed 81 mg PO DAILY 04/21/19 02/05/21 History release blood-glucose transmitter #1 ea 06/05/20 02/05/21 Rx insulin syringe-needle U-100 1 mL #300 each 06/08/20 02/05/21 Rx 25 gauge x 5/8 lisinopril 40 mg tablet 40 mg PO DAILY #90 tablet 06/16/20 02/05/21 Rx simvastatin 40 mg tablet See Rx Instructions .ROUTE 07/12/20 02/05/21 Rx .COMPLEX #90 tablet blood-glucose meter,continuous #1 ea 08/22/20 02/05/21 Rx blood-glucose sensor #3 ea 08/22/20 02/05/21 Rx furosemide 20 mg tablet See Rx Instructions .ROUTE 08/23/20 02/05/21 Rx .COMPLEX #90 tablet pen needle, diabetic 29 gauge x See Rx Instructions .ROUTE 08/23/20 02/05/21 Rx 1/2 .COMPLEX #180 ea warfarin 4 mg tablet See Rx Instructions .ROUTE
[2021-02-06] MEDS: hydrALAZINE 10 MG TABLET PO (14:29)
--- NOTE | 2021-02-06 14:49 | PC.NURSE ---
Pt discharged with personal items returned. Discharge instructions given to pt. Pt assisted to family car via wheel chair.
[2021-02-06 17:38] LABS: Glucose Point of Care 381 mg/dl (65-105)
--- NOTE | 2021-02-07 14:59 | PC.NURSE ---
Pt states he received and understood his discharge instructions. Pt has no other comments.
== END 2021-02-06 13:30 | disposition home or self-care (01) | DRG 638 ==
LOC: CHSED 22:40 → CHS2ND 22:49
PROVIDERS: Admitting Provider Emergency Medicine; Emergency Provider Emergency Medicine; PCP Family Medicine; Visit Provider Emergency Medicine
DX: E11.65 Type 2 diabetes mellitus with hyperglycemia (principal); N18.4 Chronic kidney disease, stage 4 (severe); I48.20 Chronic atrial fibrillation, unspecified; E11.22 Type 2 diabetes mellitus with diabetic chronic kidney disease; I12.9 Hypertensive chronic kidney disease with stage 1 through stage 4 chronic kidney disease, or unspecified chronic kidney disease; E78.5 Hyperlipidemia, unspecified; C61 Malignant neoplasm of prostate; Z86.73 Personal history of transient ischemic attack (TIA), and cerebral infarction without residual deficits; Z95.2 Presence of prosthetic heart valve; Z79.82 Long term (current) use of aspirin; Z96.659 Presence of unspecified artificial knee joint; Z87.891 Personal history of nicotine dependence; Z79.4 Long term (current) use of insulin; Z79.01 Long term (current) use of anticoagulants
CPT/HCPCS: 36415; 80053; 81001; 82948; 83605; 83735; 84100; 85025; 85610; 86140; 87040; 93005; 93922; 96374; 99285; A9270; J1815; J1940; J7030

== ENCOUNTER 2021-03-05 14:00 | Inpatient (IN) | payer MEDICARE, OTHER, SELFPAY ==
--- NOTE | ~2021-03-05 | XR_ITS ---
EXAMINATION: XR chest 1V portable DATE: 03/05/2021 14:19 INDICATION: Dyspnea TECHNIQUE: frontal view of the chest was obtained. COMPARISON: 06/12/2020 FINDINGS: Mild opacities at the bilateral lower lung zones including subtle hazy opacity at the right lower dora g zone with indistinctness to the costophrenic angle which could represent a small posteriorly layeri ng pleural effusion. No pneumothorax or left-sided pleural effusion. Cardiomegaly. Median sternotomy wires and mediastinal surgical clips are seen, likely from prior coronary artery bypass grafting. IMPRESSION: 1. Opacities at the bilateral lung bases which could represent atelectasis, pneumonia and/or minimal pulmonary edema. 2. Possible small right pleural effusion. 3. Cardiomegaly. Reviewed, dictated and finalized at location A. ORK SUPPORT ADMINISTRATOR IMPRESSION: 1. Opacities at the bilateral lung bases which could represent atelectasis, pne umonia and/or minimal pulmonary edema. 2. Possible small right pleural effusion. 3. Cardiomegaly.
--- NOTE | 2021-03-05 14:07 | ECG_ITS ---
Measurements Intervals [place] Rate: 46 P: WI: 0 QRS: 4 QRSD: 100 T: 81 QT: 515 QTc: 451 Interpretive Statements ATRIAL FIBRILLATION WITH SLOW VENTRICULAR RESPONSE CANNOT RULE OUT SEPTAL INFARCT, AGE INDETERMINATE CONSIDER INFERIOR INFARCT, AGE INDETERMINATE BORDERLINE ST-T WAVE ABNORMALITY- HIGH LATERL LEADS BASELINE ARTIFACT- II, III ABNORMAL ECG Electronically Signed On 03-05-2021 14:57:35 [employer] by Edi Olsen D.O.
[2021-03-05 14:10] VITALS: BP 131/80; PULSE 58; RESP 26; TEMP 36.7; O2SAT 98
[2021-03-05] MEDS: FUROSEMIDE INJ 40 MG/4 ML VIAL IV PUSH ×2 (14:15→17:53)
[2021-03-05 14:44] LABS: Base Excess ABG -4.6 mmol/L (0-2); Basophils Absolute Auto 0.03 K/mm3 (0.00-0.10); Basophils Percent Auto 0.4 % (0.0-1.0); Eosinophils Percent Auto 3.5 % (1.0-6.0); HCO3 ABG 18.4 mmol/L (23-29); Hematocrit 33.3 % (37.0-46.0); Hemoglobin 10.7 g/dL (12.4-15.3); Immature Granulocyte Absolute 0.03 K/mm3 (0.00-0.00); Immature Granulocyte Percent A 0.4 % (0.0-0.0); Mean Corpuscular HGB Conc 32.1 g/dL (32.0-36.0); Mean Corpuscular Hemoglobin 30.7 pg (27.0-31.0); Mean Corpuscular Volume 95.4 fL (78.0-102.0); Mean Platelet Volume 10.4 fl (8.7-11.0); Monocytes Absolute Auto 0.81 K/mm3 (0.10-0.90); Monocytes Percent Auto 9.5 % (2.0-11.0); Neutrophils Absolute Auto 6.8 K/mm3 (1.7-7.2); Neutrophils Percent Auto 79.2 % (50.0-70.0); Oxygen Content ABG 16.3 %vol (16.0-22.0); Oxygen Saturation ABG 97.6 % (95-97); Oxyhemoglobin 96.8 % (94-100); PCO2 ABG 28.3 mmHg (35-45); PO2 ABG 107.3 mmHg (75-85); Platelet Count Result 194 K/mm3 (150-420); Red Blood Count 3.49 M/mm3 (4.70-6.10); Red Cell Distribution Width 14.1 % (11.6-14.4); Total Hemoglobin 11.9 g/dL (12.0-18.0); White Blood Count 8.6 K/mm3 (4.8-10.8); pH ABG 7.43 (7.35-7.45)
[2021-03-05 14:45] LABS: Device ROOM AIR; Modified Allen's Test Pass; Site Drawn LEFT RADIAL
[2021-03-05 15:05] LABS: Lactic Acid Reflex 0.7 mmol/L (0.4-2.0)
[2021-03-05 15:07] LABS: Partial Thromboplastin Time 61.3 SEC (23.90-30.70); Prothrombin Time 65.3 Seconds (9.50-12.10)
[2021-03-05 15:10] LABS: INR 6.7
[2021-03-05 15:12] LABS: Alanine Aminotransferase 52 U/L (16-63); Albumin Level 3.1 g/dL (3.4-5.0); Alkaline Phosphatase 149 U/L (46-116); Anion Gap 13 mmol/L (8-16); Aspartate Amino Transferase 36 U/L (15-37); Bilirubin,Total 0.4 mg/dL (0.00-1.00); Blood Urea Nitrogen 67 mg/dL (7-18); Calcium 8.3 mg/dL (8.5-10.1); Carbon Dioxide 20 mmol/L (21-32); Chloride 109 mmol/L (98-108); Estimated CRCL calculation 17 ml/min; Estimated Glomerular Filt Rate 15; Glucose 61 mg/dL (70-99); Magnesium 2.1 mg/dL (1.8-2.4); NT Pro B Type Natriuretic Pept 5775 pg/mL (0-450); Osmolality Calculated 311 mOsm/kg (285-295); Potassium 5.8 mmol/L (3.5-5.1); Sodium 142 mmol/L (136-145); Total Protein 6.9 g/dL (6.4-8.2)
[2021-03-05 15:12] LABS: CRP 0.8 mg/dL (0.0-0.9)
[2021-03-05 15:15] LABS: Add Urine Microscopic? YES; Appearance Urine Clear (Clear); Bilirubin Urine Negative (Negative); Blood Urine 2+ (Negative); Color Urine Light Yellow (Yellow); Glucose Urine UA Negative (Negative); Ketones Urine Negative (Negative); Leukocyte Esterase Ur Negative (Negative); Nitrate Urine Negative (Negative); Protein Urine Trace (Negative); Urobilinogen Urine 0.2 mg/dL (0.2-1.0)
--- NOTE | 2021-03-05 15:17 | PC.NURSE ---
UA from catheterized specimen taken to lab.
--- NOTE | 2021-03-05 15:19 | ED.SOB ---
HPI - SOB/Dyspnea General Chief Complaint: Shortness of Breath/Dyspnea Stated Complaint: sob Source: patient and family History of Present Illness HPI Narrative: this an 80-year-old gentleman with history of CHF, hypertension hyperlipidemia and diabetes, with some history of aortic valve replacement currently on Coumadin. The patient was at his primary care physician's office with increasing shortness of breath with a about a 14lb weight gain over the last 2 to 3 weeks history of CHF with ejection fraction of 70% diastolic dysfunction type 2. With no chest pain no shortness of breath no abdominal pain no nausea vomiting no diarrhea constipation patient does have peripheral edema. MD elicited complaint: shortness of breath Pertinent past history: congestive heart failure Onset (ago): day(s) Context: occurred during exertion Timing: constant Severity: moderate Exacerbating factors: lying flat and exertion Relieving factors: upright position Associated symptoms: denies other symptoms Treatment prior to arrival: none Related Data Home Medications Medication Instructions Recorded Confirmed aspirin 81 mg tablet,delayed 81 mg PO DAILY 04/21/19 02/05/21 release Allergies Allergy/AdvReac Type Severity Reaction Status Date / Time meloxicam [Mobic] Allergy Intermediate Unknown Verified 03/05/21 12:19 naproxen Allergy Unknown Unknown Verified 03/05/21 12:19 Review of Systems Review of Systems: All systems reviewed & are unremarkable except as noted in HPI and below PMFSH Past Medical History Medical History Atrial fibrillation CKD stage 4 due to type 2 diabetes mellitus CVA (cerebral vascular accident) DM2 (diabetes mellitus, type 2) Heart disease Hyperlipidemia Hypertension Prostate cancer Umbilical hernia without mention of obstruction or gangrene Surgical History Surgical History H/O aortic valve replacement History of knee replacement Hx of artificial heart valve replacement 2018 Hx of cataract surgery 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 Family History Family History Other Diabetes mellitus Heart disease Hypertension Other Family history of arthritis Social History Social History Smoking packs per day: 2 Smoking cigarettes per day: 40.0 Years smoked: 30 Smoking pack-years: 60.00 Smoking status: Former smoker Tobacco type: cigarettes, pipe and cigars Alcohol intake: never Substance use: never Gender identity (if verbalized by the patient): Male Sexual Orientation (if Verbalized by the Patient): Straight or Heterosexual Spiritual care concerns: Yes Exam Const: General: no acute distress and alert Orientation/consciousness: patient oriented x3 HENMT: Head: normal to inspection Eyes: Conjunctivae: conjunctivae normal Pupils: Equal, round and reactive pupils present EOM: EOMs intact bilaterally Neck: Neck: normal visual inspection, no lymphadenopathy and no meningeal signs Chest: Chest palpation & inspection: normal inspection of the chest Resp: Effort & Inspection: normal respiratory effort Auscultation: clear to auscultation bilaterally Cardio: Rate: regular rate Rhythm: regular rhythm GI: GI Palp: Yes Soft to palpation Urinary Catheter: Urinary Catheter: patent and draining and urine clear Back/Spine/Pelvis: Back: no CVA tenderness Skin: General skin exam: normal color Rashes: no rashes Neuro: General: patient oriented x3, moves all extremities, no meningeal signs and no focal motor deficits Extrem: Other: 2+ pitting edema up to his mid shins bilaterally Psych: Mental Status: mental status grossly normal Affect: normal affect Course Course Emergency Course: EKG and patrick
[2021-03-05 15:34] LABS: Bacteria Urine 1+ /hpf; Squamous Epithelial Cell Urine Rare /hpf (Few); WBC Urine 0-3 /hpf (0-3)
[2021-03-05 15:48] VITALS: BP 138/67; PULSE 47; RESP 22; O2SAT 96
[2021-03-05 16:28] VITALS: BP 158/58; PULSE 50; RESP 22; O2SAT 95
[2021-03-05 16:30] VITALS: BP 140/68; PULSE 57; RESP 20; TEMP 36.6; O2SAT 98; BMI 33.7
--- NOTE | 2021-03-05 16:30 | PC.NURSE ---
Patient admitted to room 210. Assisted to bed from stretcher. Oriented to room and call light.
[2021-03-05 17:21] LABS: Glucose Point of Care 40 mg/dl (65-105)
--- NOTE | 2021-03-05 17:30 | PC.NURSE ---
Patient confirmed to be covid negative, moved out of isolation room and into room 204.
[2021-03-05 18:26] LABS: Glucose Point of Care 133 mg/dl (65-105)
--- NOTE | 2021-03-05 19:05 | PC.NURSE ---
Completed change of shift report. Patient is sitting on the side of the bed, waiting to go to the commode. He was able to walk to the commode without any help. Patient stated that he was not in any pain, and did not need anything else at this time.
[2021-03-05 20:00] VITALS: BP 117/68; PULSE 43; RESP 18; TEMP 36.6; O2SAT 100
[2021-03-05 21:41] LABS: Glucose Point of Care 201 mg/dl (65-105)
--- NOTE | 2021-03-05 23:05 | PC.NURSE ---
Completed patient rounding. Patient is sleeping comfortably in bed, with no signs of pain or discomfort.
[2021-03-06] VITALS (16 sets, daily range): BP systolic 110–152; BP diastolic 59–70; PULSE 40–64; RESP 14–22; TEMP 36.3–38.1; O2SAT 93–99
--- NOTE | 2021-03-06 02:11 | PC.NURSE ---
Completed patient rounding. Patient is sleeping comfortably in bed, with no signs of pain or discomfort.
[2021-03-06 05:55] LABS: Basophils Absolute Auto 0.03 K/mm3 (0.00-0.10); Basophils Percent Auto 0.4 % (0.0-1.0); Eosinophils Absolute Auto 0.58 K/mm3 (0.02-0.50); Hemoglobin 11.6 g/dL (12.4-15.3); Immature Granulocyte Absolute 0.02 K/mm3 (0.00-0.00); Immature Granulocyte Percent A 0.2 % (0.0-0.0); Lymphocytes Absolute Auto 0.57 K/mm3 (1.10-4.50); Lymphocytes Percent Auto 6.9 % (18.0-42.0); Mean Corpuscular HGB Conc 32.2 g/dL (32.0-36.0); Mean Corpuscular Hemoglobin 30.8 pg (27.0-31.0); Mean Corpuscular Volume 95.5 fL (78.0-102.0); Mean Platelet Volume 10.2 fl (8.7-11.0); Monocytes Percent Auto 10.9 % (2.0-11.0); Neutrophils Absolute Auto 6.2 K/mm3 (1.7-7.2); Neutrophils Percent Auto 74.6 % (50.0-70.0); Platelet Count Result 196 K/mm3 (150-420); Red Blood Count 3.77 M/mm3 (4.70-6.10); White Blood Count 8.3 K/mm3 (4.8-10.8)
[2021-03-06 06:18] LABS: Prothrombin Time 72.5 Seconds (9.50-12.10)
[2021-03-06 06:22] LABS: Alanine Aminotransferase 45 U/L (16-63); Albumin Level 3.1 g/dL (3.4-5.0); Alkaline Phosphatase 155 U/L (46-116); Anion Gap 12 mmol/L (8-16); Aspartate Amino Transferase 34 U/L (15-37); Bilirubin,Total 0.4 mg/dL (0.00-1.00); Blood Urea Nitrogen 64 mg/dL (7-18); Calcium 8.4 mg/dL (8.5-10.1); Carbon Dioxide 24 mmol/L (21-32); Chloride 106 mmol/L (98-108); Estimated CRCL calculation 18 ml/min; Estimated Glomerular Filt Rate 16; Glucose 55 mg/dL (70-99); INR 7.5; Osmolality Calculated 310 mOsm/kg (285-295); Potassium 4.3 mmol/L (3.5-5.1); Sodium 142 mmol/L (136-145); Total Protein 6.9 g/dL (6.4-8.2)
[2021-03-06] MEDS: SIMVASTATIN 10 MG TABLET 40 MG BY MOUTH (08:32)
[2021-03-06] MEDS: FUROSEMIDE INJ 40 MG/4 ML VIAL IV PUSH ×2 (08:32→16:08)
[2021-03-06] MEDS: PHYTONADIONE INJ 10 MG/ML AMP SUB-Q ×2 (08:32→14:25)
[2021-03-06] MEDS: amLODIPine BESYLATE 5 MG TABLET 10 MG PO (08:33)
[2021-03-06] MEDS: lisinopriL 20 MG TABLET PO (08:33)
[2021-03-06] MEDS: METOPROLOL SUCCINATE EXT REL 50 MG TABCR PO (08:33)
[2021-03-06 11:32] LABS: Glucose Point of Care 212 mg/dl (65-105)
[2021-03-06 12:48] LABS: NT Pro B Type Natriuretic Pept 6016 pg/mL (0-450)
--- NOTE | 2021-03-06 13:27 | PM.IMHP ---
H&P: HPI History of Present Illness Date/Time: 03/06/21 13:27 this is a 80-year-old female presented to urgent care with complaints of shortness of breath and dyspnea. Patient has a past medical history of congestive heart failure, hypertension, hyperlipidemia, diabetes, chronic kidney disease stage IV, CVA, prostate cancer According to daughter and patient he has been feeling bad for approximately 1 week. According to patient he went to his primary care physician office Dr. Rosario [he come to our ER congestive heart failure exacerbation. Patient WBC is 8.6 hemoglobin 10.7 hematocrit 33.3, platelet 194, INR 6.7, blood gas pH 7.43, CO2 28.3, O2 107.3 bicarb 18.4, sodium 142, potassium 5.8, BUN 67, creatinine 3.83, blood sugar 133, lactic acid 0.7, magnesium 2.1, AST 38, ALT 29, troponin XX 8, CRP 0.8, BNP 5775, UA with bacteria, chest x-ray indicates pneumonia versus pulmonary edema, EKG A. fib with slow ventricular response. Patient being admitted for COPD exacerbation, supratherapeutic INR, acute on chronic kidney injury. Patient notes that his condition has much improved he does not have shortness of breath any longer. The patient denies SOB, CP, palpitation, extremity numbness, lightheadedness, dizziness, constipation, diarrhea, chills, or fever. Patient does not have a ux ui designer will need to follow-up with a ux ui designer Observation Time spent 60 minutes Chief Complaint: Shortness of breath dyspnea Review of Systems Review of Systems: A 14 organ system Review of Systems was performed and pertinent positives included in the HPI, otherwise remaining ROS is negative. 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 Family History Family History Other Diabetes mellitus Heart disease Hypertension Other Family history of arthritis Social History Social History Smoking packs per day: 2 Smoking cigarettes per day: 40.0 Years smoked: 30 Smoking pack-years: 60.00 Smoking status: Never smoker Tobacco type: cigarettes, pipe and cigars Alcohol intake: never Substance use: never Gender identity (if verbalized by the patient): Male Sexual Orientation (if Verbalized by the Patient): Straight or Heterosexual Spiritual care concerns: No Meds Home Medications and Allergies Home Medications Medication Instructions Recorded Confirmed Type aspirin 81 mg tablet,delayed 81 mg PO DAILY 04/21/19 03/05/21 History release blood-glucose transmitter #1 ea 06/05/20 03/06/21 Rx insulin syringe-needle U-100 1 mL #300 each 06/08/20 03/06/21 Rx 25 gauge x 5/8 simvastatin 40 mg tablet See Rx Instructions .ROUTE 07/12/20 03/05/21 Rx .COMPLEX #90 tablet blood-glucose meter,continuous #1 ea 08/22/20 03/06/21 Rx blood-glucose sensor #3 ea 08/22/20 03/06/21 Rx furosemide 20 mg tablet See Rx Instructions .ROUTE 08/23/20 03/05/21 Rx .COMPLEX #90 tablet pen needle, diabetic 29 gauge x See Rx Instructions .ROUTE 08/23/20 03/05/21 Rx 1/2 .COMPLEX #180 ea warfarin 4 mg tablet See Rx Instructions .ROUTE 11/20/20 03/05/21 Rx .COMPLEX #90 tablet amlodipine 10 mg PO DAILY #30 tablet 02/06/21 03/05/21 Rx metoprolol succinate 50 mg 50 mg PO DAILY #90 tablet 02/13/21 03/05/21 Rx tablet,extended rel
[2021-03-06 13:31] LABS: Prothrombin Time 70.3 Seconds (9.50-12.10)
[2021-03-06 13:33] LABS: INR 7.2
--- NOTE | 2021-03-06 14:25 | PC.NURSE ---
Patient noted attempting to transfer to bedside commode without assist. Nurse x2 assist patient back to bed. Patient had no BM. Resting back in bed, hob elevated. Call light at side. Patient noted to be more confused that earlier today. Patient A&Ox3 this morning, currently A&Ox2.
--- NOTE | 2021-03-06 15:15 | PC.NURSE ---
Patient noted to be more confused, unable to state month,day,year. Patient able to state name and location. Patient noted attempting to get out of bed x3-4 times. Bed alarm cont to be active. Call light at side.
[2021-03-06] MEDS: ACETAMINOPHEN 325 MG TABLET 650 MG PO ×2 (16:05→23:27)
[2021-03-06] MEDS: LORazepam INJ (*CRX) 2 MG/ML VIAL 0.5 MG IV PUSH ×2 (16:33→22:40)
[2021-03-06 18:54] LABS: INR 3.6; Prothrombin Time 36.3 Seconds (9.50-12.10)
[2021-03-06 19:08] LABS: NT Pro B Type Natriuretic Pept 6952 pg/mL (0-450)
[2021-03-06 21:16] LABS: Glucose Point of Care 223 mg/dl (65-105)
[2021-03-06 21:16] LABS: Glucose Point of Care 162 mg/dl (65-105)
--- NOTE | 2021-03-06 22:35 | PC.NURSE ---
Patient pulling on his catheter,pulled the stat-lock off. Stat-lock replaced and patient pulled it off again. Urine turning red from patient pulling on the catheter so much. Patient continuously trying to get out of bed unassisted. Patient yelled @ nurse to shut up when nurse asked patient to lie back down. Pateint pulling @ linens and throwing them on the floor. PRN Ativan given. Call light in reach and bed alarm on.
[2021-03-06] MEDS: traMADol HCL (*CRX) 25 MG TABLET PO (23:26)
[2021-03-06] MEDS: traZODone HCL 50 MG TABLET PO (23:27)
--- NOTE | 2021-03-06 23:35 | PC.NURSE ---
Patient continues to pull on his catheter and pulled another stat-lock off. Continues trying to get up unattended and throwing linen on the floor. PRN Trazodone given, along with PRN Tylenol due to patient's temp being 100.0. Call light in reach and bed alarm on.
--- NOTE | 2021-03-07 | PC.NURSE ---
Patient appears to be sleeping by the rise and fall of his chest. Respirations even and unlabored. No distress noted. Urine in alvarado bag continues to be red. Call light in reach and bed alarm on.
[2021-03-07 01:17] VITALS: TEMP 36.4
--- NOTE | 2021-03-07 03:39 | PC.NURSE ---
Patient's heart rate dipping as low as 34. Patient sleeping. Dr Sánchez notified with no new orders received.
[2021-03-07 04:00] VITALS: BP 126/40; PULSE 50; RESP 18; TEMP 36.1; O2SAT 96
[2021-03-07 05:35] LABS: Hematocrit 34.8 % (37.0-46.0); Hemoglobin 11.3 g/dL (12.4-15.3); Mean Corpuscular HGB Conc 32.5 g/dL (32.0-36.0); Mean Corpuscular Hemoglobin 31.1 pg (27.0-31.0); Mean Corpuscular Volume 95.9 fL (78.0-102.0); Mean Platelet Volume 10.5 fl (8.7-11.0); Platelet Count Result 177 K/mm3 (150-420); Red Blood Count 3.63 M/mm3 (4.70-6.10); White Blood Count 6.7 K/mm3 (4.8-10.8)
[2021-03-07 05:42] LABS: INR 1.8; Prothrombin Time 18.2 Seconds (9.50-12.10)
[2021-03-07 05:54] LABS: Alanine Aminotransferase 27 U/L (16-63); Albumin Level 3.2 g/dL (3.4-5.0); Alkaline Phosphatase 167 U/L (46-116); Anion Gap 10 mmol/L (8-16); Aspartate Amino Transferase 41 U/L (15-37); Bilirubin,Total 0.6 mg/dL (0.00-1.00); Blood Urea Nitrogen 69 mg/dL (7-18); Calcium 8.6 mg/dL (8.5-10.1); Carbon Dioxide 25 mmol/L (21-32); Chloride 103 mmol/L (98-108); Estimated CRCL calculation 17 ml/min; Estimated Glomerular Filt Rate 15; Glucose 131 mg/dL (70-99); Magnesium 2.1 mg/dL (1.8-2.4); NT Pro B Type Natriuretic Pept 8314 pg/mL (0-450); Osmolality Calculated 308 mOsm/kg (285-295); Potassium 5.2 mmol/L (3.5-5.1); Sodium 138 mmol/L (136-145); Total Protein 7.1 g/dL (6.4-8.2)
[2021-03-07 08:00] VITALS: BP 143/50; PULSE 51; PULSE 59; RESP 16; TEMP 36.5; O2SAT 94
[2021-03-07 08:12] LABS: Glucose Point of Care 127 mg/dl (65-105)
[2021-03-07] MEDS: amLODIPine BESYLATE 5 MG TABLET 10 MG PO (09:05)
[2021-03-07] MEDS: INSULIN GLARGINE (*BKC) 100 UNITS/ML 45 UNITS SUB-Q (09:21)
[2021-03-07] MEDS: INSULIN HUMAN REGULAR (*BKC) 100 UNITS/ML 8 UNITS SUB-Q (09:47)
[2021-03-07] MEDS: ASPIRIN 81 MG ENTERIC TABLET PO (09:48)
[2021-03-07] MEDS: lisinopriL 20 MG TABLET PO (09:49)
[2021-03-07] MEDS: FUROSEMIDE 40 MG TABLET PO (09:49)
[2021-03-07] MEDS: SIMVASTATIN 10 MG TABLET 40 MG BY MOUTH (09:49)
[2021-03-07 11:50] LABS: Glucose Point of Care 157 mg/dl (65-105)
[2021-03-07 11:51] VITALS: BP 130/40; PULSE 58; RESP 14; TEMP 36.3; O2SAT 97
--- NOTE | 2021-03-07 12:28 | P.DS_ITS ---
DS: Admitting Diagnosis Discharge Date 03/07/2021 Admitting Diagnosis chf exacerbat talk to them about theion DS: Discharge Diagnosis Discharge Diagnosis (1) CHF (congestive heart failure): Qualifiers: Heart failure chronicity: acute Heart failure type: diastolic Qualified Code(s): I50.31 - Acute diastolic (congestive) heart failure Code(s): I50.9 - Heart failure, unspecified Status: Acute Assessment and Plan: * Uncompensated * BNP [id number] * Patient received Lasix 40 mg once in the ED continue Lasix 40 mg twice daily * Weight >111 * Chest x-ray indicated pulmonary pneumonia versus pulmonary edema more than likely pulmonary edema * Continue telemetry * Intake and output reviewed * Joseph in place Discharge * Patient discharging to hospice (2) Bradycardia: Code(s): R00.1 - Bradycardia, unspecified Status: Acute Assessment and Plan: * Metoprolol on hold * EKG indicates A. fib with slow ventricular response * Will adjust metoprolol before discharge Discharge * Patient discharging to hospice (3) Hypertension: Qualifiers: Hypertension type: primary hypertension Qualified Code(s): I10 - Essential (primary) hypertension Code(s): I10 - Essential (primary) hypertension Status: Acute Assessment and Plan: * Blood pressure 110/59 * Continue Norvasc, lisinopril, will hold metoprolol Discharge * Patient discharging to hospice (4) Diabetes mellitus: Qualifiers: Chronic kidney disease stage: stage 4 (severe) Diabetes mellitus complication detail: with chronic kidney disease Diabetes mellitus complication status: with kidney complications Diabetes mellitus correction insulin use: unspecified termite renewal inspector insulin use status Diabetes mellitus type: type 2 Qualified Code(s): E11.22 - Type 2 diabetes mellitus with diabetic chronic kidney disease; N18.4 - Chronic kidney disease, stage 4 (severe) Code(s): E11.9 - Type 2 diabetes mellitus without complications Status: Acute Assessment and Plan: * Blood sugar less than 300 * Continue Lantus 40 mg daily with sliding scale, hypoglycemia protocol and Accu-Cheks * Will adjust medication as needed Discharge * Patient discharging to hospice (5) Hyperlipidemia: Code(s): E78.5 - Hyperlipidemia, unspecified Status: Acute Assessment and Plan: * Continue statin Discharge * Patient discharging to hospice (6) Atrial fibrillation: Code(s): I48.91 - Unspecified atrial fibrillation Status: Acute Assessment and Plan: * Metoprolol on hold due to bradycardic and warfarin on hold due to supratherapeutic INR * Continue telemetry * Resume medication with adjustment when appropriate * Patient will need a referral to a baggageman Discharge * Patient discharging to hospice (7) Supratherapeutic INR: Code(s): R79.1 - Abnormal coagulation profile Status: Acute Assessment and Plan: * INR 6.7>7.5>7.2 * Patient received vitamin K 10 mg, will receive an additional dose of vitamin K 10 mg. * Repeat INR * No obvious bleeding noted Discharge * Patient discharging to hospice (8) CKD stage 4 due to type 2 diabetes mellitus: Code(s): E11.22 - Type 2 diabetes mellitus with diabetic chronic kidney disease; N18.4 - Chronic kidney disease, stage 4 (severe) Status: Acute Assessment and Plan: * Acute on chronic kidney failure * Creatinine 3.68 baseline appears to be between 2.20 and 2.40 * Probabl
--- NOTE | 2021-03-07 12:28 | PM.DS ---
DS: Admitting Diagnosis Discharge Date 03/07/2021 Admitting Diagnosis chf exacerbat talk to them about theion DS: Discharge Diagnosis Discharge Diagnosis (1) CHF (congestive heart failure): Qualifiers: Heart failure chronicity: acute Heart failure type: diastolic Qualified Code(s): I50.31 - Acute diastolic (congestive) heart failure Code(s): I50.9 - Heart failure, unspecified Status: Acute Assessment and Plan: Uncompensated BNP [id number] Patient received Lasix 40 mg once in the ED continue Lasix 40 mg twice daily Weight [id number] Chest x-ray indicated pulmonary pneumonia versus pulmonary edema more than likely pulmonary edema Continue telemetry Intake and output reviewed Joseph in place Discharge Patient discharging to hospice (2) Bradycardia: Code(s): R00.1 - Bradycardia, unspecified Status: Acute Assessment and Plan: Metoprolol on hold EKG indicates A. fib with slow ventricular response Will adjust metoprolol before discharge Discharge Patient discharging to hospice (3) Hypertension: Qualifiers: Hypertension type: primary hypertension Qualified Code(s): I10 - Essential (primary) hypertension Code(s): I10 - Essential (primary) hypertension Status: Acute Assessment and Plan: Blood pressure 110/59 Continue Norvasc, lisinopril, will hold metoprolol Discharge Patient discharging to hospice (4) Diabetes mellitus: Qualifiers: Chronic kidney disease stage: stage 4 (severe) Diabetes mellitus complication detail: with chronic kidney disease Diabetes mellitus complication status: with kidney complications Diabetes mellitus residential insulin use: unspecified resume writer insulin use status Diabetes mellitus type: type 2 Qualified Code(s): E11.22 - Type 2 diabetes mellitus with diabetic chronic kidney disease; N18.4 - Chronic kidney disease, stage 4 (severe) Code(s): E11.9 - Type 2 diabetes mellitus without complications Status: Acute Assessment and Plan: Blood sugar less than 300 Continue Lantus 40 mg daily with sliding scale, hypoglycemia protocol and Accu-Cheks Will adjust medication as needed Discharge Patient discharging to hospice (5) Hyperlipidemia: Code(s): E78.5 - Hyperlipidemia, unspecified Status: Acute Assessment and Plan: Continue statin Discharge Patient discharging to hospice (6) Atrial fibrillation: Code(s): I48.91 - Unspecified atrial fibrillation Status: Acute Assessment and Plan: Metoprolol on hold due to bradycardic and warfarin on hold due to supratherapeutic INR Continue telemetry Resume medication with adjustment when appropriate Patient will need a referral to a parts expediter Discharge Patient discharging to hospice (7) Supratherapeutic INR: Code(s): R79.1 - Abnormal coagulation profile Status: Acute Assessment and Plan: INR 6.7>7.5>7.2 Patient received vitamin K 10 mg, will receive an additional dose of vitamin K 10 mg. Repeat INR No obvious bleeding noted Discharge Patient discharging to hospice (8) CKD stage 4 due to type 2 diabetes mellitus: Code(s): E11.22 - Type 2 diabetes mellitus with diabetic chronic kidney disease; N18.4 - Chronic kidney disease, stage 4 (severe) Status: Acute Assessment and Plan: Acute on chronic kidney failure Creatinine 3.68 baseline appears to be between 2.20 and 2.40 Probably worsened due to Lasix Avoid nephrotoxic agent Renal dose medication Discharge Patient discharging to hospice (9) PNA (pneumonia): Code(s): J18.9 - Pneumonia, unspecified organism Status: Acute Assessment and Plan: Chest x-ray indicate possible pneumonia versus pulmonary edema Abnormal chest x-ray more than likely caused by pulmonary edema Continue Rocephin and azithromycin for now Blood culture pending WBCs within normal li
--- NOTE | 2021-03-07 13:34 | PCOTNOTE ---
Per BALLASTER, patient does not need to be seen as he is transferring to hospice care. [place]
[2021-03-07 16:00] VITALS: BP 137/67; PULSE 61; RESP 18; TEMP 37.3; O2SAT 95
--- NOTE | 2021-03-07 16:28 | PC.NURSE ---
[facility] called to request transfer to home, dispatcher stated there was no rig available for transfers. [facility] notified of need for transfer.
[2021-03-07 16:51] LABS: Glucose Point of Care 65 mg/dl (65-105)
--- NOTE | 2021-03-08 10:59 | PC.NURSE ---
Phone number for discharge call back is not in service.
== END 2021-03-07 17:00 | disposition hospice, home (50) | DRG 291 ==
LOC: CHSED 15:27 → CHS2ND 16:16
PROVIDERS: Nurse Practitioner; Admitting Provider Emergency Medicine; Emergency Provider Emergency Medicine; PCP Family Medicine; Visit Provider Emergency Medicine
DX: I13.0 Hypertensive heart and chronic kidney disease with heart failure and stage 1 through stage 4 chronic kidney disease, or unspecified chronic kidney disease (principal); J18.9 Pneumonia, unspecified organism; N18.4 Chronic kidney disease, stage 4 (severe); I48.20 Chronic atrial fibrillation, unspecified; I50.9 Heart failure, unspecified; E11.22 Type 2 diabetes mellitus with diabetic chronic kidney disease; E78.5 Hyperlipidemia, unspecified; C61 Malignant neoplasm of prostate; R00.1 Bradycardia, unspecified; Z96.659 Presence of unspecified artificial knee joint; Z86.73 Personal history of transient ischemic attack (TIA), and cerebral infarction without residual deficits; Z79.01 Long term (current) use of anticoagulants; Z95.2 Presence of prosthetic heart valve; Z79.4 Long term (current) use of insulin
CPT/HCPCS: 36415; 36600; 71045; 80053; 81001; 82805; 82948; 83605; 83735; 83880; 84484; 85025; 85027; 85610; 85730; 86140; 87040; 93005; 96365; 96367; 96372; 96374; 96375; 96376; 97161; 97165; 97530; 97535; 99285; A9270; G0378; J0456; J0696; J1815; J1940; J2060; J3430